=== PATIENT | male | born 1990 | race Caucasian/White ===

== ENCOUNTER 2016-11-27 03:29 | Emergency (ER) | payer OTHER ==
--- NOTE | ~2016-11-27 | CR63 ---
[facility] A Service of [facility] RADIOLOGY TEXT RESULTS PATIENT: MOE JUAREZ LOCATION: SED : [birth year] UNIT #: [id number] AGE: [address]: Ethan Pfeiffer MD SEX: M ORDER DR: [id number] [place] [address] [id number] E MR#: [id number] Acc #: [id number] NAME: MOE JUAREZ : 1990 SEX: M STUDY DATE/TIME: 11/27/2016 3:34 UNIT: SED ROOM: STUDY DESCRIPTION: CR Chest 2 View Attending Physician: Ethan Pfeiffer M.D. Ordering Physician: Ethan Pfeiffer M.D. Primary Care Physician: Primary Care Physician No MEDICAL IMAGING REPORT This report is preliminary unless electronic signature is present. EXAM Two-view chest, 11/27/2016 INDICATION Cough and fever for the past 3 days. PROCEDURE Frontal and lateral views of the chest. COMPARISON 07/09/2016 FINDINGS Heart size within normal limits. No dense consolidation. No pleural fluid or pneumothorax. IMPRESSION No active process. Dictated by... Topher Quach M.D. THIS IS AN ELECTRONICALLY VERIFIED REPORT Topher Quach M.D. at 11/27/2016 10:14 PM EED/reilly TD: 11/27/2016 05:11 JOB #: [id number] MEDICAL IMAGING REPORT [facility] A Service of [facility] RADIOLOGY TEXT RESULTS PATIENT: MOE JUAREZ LOCATION: SED : [birth year] UNIT #: [id number] AGE: [address]: Ethan Pfeiffer MD SEX: M ORDER DR: Page 1 of 1
[~2016-11-27 03:29] MED LIST: ALBUTEROL 0.5ML INH; NO MEDICATIONS; PHENERGAN DM1 ML PO; TOBRAMYCIN SULFA5 M1 OP; ZOFRAN ODT4 MG/UDTAB PO; [UNRECOGNIZED DRUG - REMARK]
[2016-11-27 03:38] LABS: INFLUENZA A POS (NEG); INFLUENZA B NEG (NEG)
== END 2016-11-27 03:54 | disposition home or self-care (01) ==
LOC: SED 03:29
PROVIDERS: Emergency Medicine
DX: J10.1 Influenza due to other identified influenza virus with other respiratory manifestations (principal); Z79.899 Other long term (current) drug therapy
CPT/HCPCS: 71020; 87651; 87804; 94640; 99284

== ENCOUNTER 2017-02-23 18:49 | Emergency (ER) | payer SELFPAY ==
--- NOTE | ~2017-02-23 | CT2 ---
[facility] A Service of [facility] RADIOLOGY TEXT RESULTS PATIENT: MOE JUAREZ LOCATION: [place] : [birth year] UNIT #: [id number] AGE: [address]: Abdoulaye Hollis MD SEX: M ORDER DR: [id number] [facility] [address]. [place], [place] [address] [id number] E MR#: [id number] Acc #: [id number] NAME: MOE JUAREZ : 1990 SEX: M STUDY DATE/TIME: 02/23/2017 21:22 UNIT: [facility] ROOM: STUDY DESCRIPTION: CT Abd and Pelv W Cont Attending Physician: Abdoulaye Hollis M.D. Ordering Physician: Abdoulaye Hollis M.D. Primary Care Physician: No Primary Care Physician MEDICAL IMAGING REPORT This report is preliminary unless electronic signature is present EXAM CT scan of the abdomen and pelvis with contrast, 02/23/2017. HISTORY Right-side abdominal pain for 2 hours today. TECHNIQUE Spiral CT was performed through the abdomen and pelvis following oral and intravenous contrast administration. This CT exam was performed with one or more of the following radiation dose reduction techniques: automatic exposure control, adjustment of mA and/or kV according to patient size, and iterative reconstruction. FINDINGS ABDOMEN. The liver, spleen, pancreas, gallbladder and biliary tree, adrenal glands and kidneys are normal. PELVIS: Findings the gut, mesenteric and anyi structures are normal. The appendix is normal. There is no free fluid in the abdomen or pelvis. The lung bases are normal. IMPRESSION Negative CT scan of the abdomen and pelvis with contrast. Normal appendix. Dictated by... Burak Patterson M.D. THIS IS AN ELECTRONICALLY VERIFIED REPORT Burak Patterson M.D. at 02/24/2017 2:16 PM KRT/tmw [facility] A Service [facility] RADIOLOGY TEXT RESULTS PATIENT: MOE JUAREZ LOCATION: [facility] : [birth year] UNIT #: [id number] AGE: [address]: Abdoulaye Hollis MD SEX: M ORDER DR: TD: 02/24/2017 04:56 JOB #: [id number] MEDICAL IMAGING REPORT Page 1 of 1 COPY
[2017-02-23 19:36] LABS: BASOPHIL# 0.1 X10e3 (0-0.3); BASOPHIL% 1.3 % (0-2.5); EOSINOPHIL# 0.1 X10e3 (0-0.7); EOSINOPHIL% 2.1 % (0.0-7.0); HEMATOCRIT 45.7 % (38.0-50.0); HEMOGLOBIN 15.1 gm/dL (13.0-16.0); LYMPHOCYTE# 1.2 X10e3 (1.0-3.5); LYMPHOCYTE% 27.5 % (17.0-45.0); MEAN CELL VOLUME 86.5 FL (83-96); MEAN CORPUSCULAR HEMOGLOBIN 28.5 PG (28-34); MEAN PLATELET VOLUME 8.9 FL (6.5-11.5); MONOCYTE# 0.4 X10e3 (0-1.0); NEUTROPHIL# 2.6 X10e3 (1.5-7.1); NEUTROPHIL% 60.1 % (40-75); PLATELET COUNT 273 X10e3 (140-420); RED BLOOD COUNT 5.28 X10e (3.90-5.60); RED CELL DISTRIBUTION WIDTH 13.1 % (11.0-15.5); WHITE BLOOD COUNT 4.3 X10e3 (4.0-10.5)
[2017-02-23 19:37] LABS: DIFF IND NO
[2017-02-23 19:53] LABS: URINE SOURCE CLEAN CATCH
[2017-02-23 19:56] LABS: ALBUMIN SERUM 4.8 g/dL (3.5-5.0); BILIRUBIN, DIRECT 0.1 mg/dL (0.0-0.2); BILIRUBIN,INDIRECT 0.5 mg/dL (0.0-0.9); BILIRUBIN,TOTAL 0.6 mg/dL (0.2-2.0); CALCIUM SERUM 9.2 mg/dL (8.4-10.2); GLOM FILT RATE Estimated 104.2 mL/min (>60); POTASSIUM 4.2 mmol/L (3.5-5.1); PROTEIN TOTAL SERUM 7.9 g/dL (6.0-8.3)
[2017-02-23 19:59] LABS: URINE APPEARANCE CLEAR; URINE BILIRUBIN NEG (NEG); URINE BLOOD NEG (NEG); URINE COLOR YELLOW; URINE GLUCOSE NEG (NEG); URINE KETONE NEG (NEG); URINE LEUKOCYTE ESTERASE NEG (NEG); URINE NITRATE NEG (NEG); URINE PROTEIN NEG (NEG); URINE SPECIFIC GRAVITY 1.021 (1.003-1.035); URINE UROBILINOGEN 0.2 MG/DL (NEG)
[2017-02-23 20:05] LABS: CULTURE INDICATED? NO
== END 2017-02-23 22:55 | disposition home or self-care (01) ==
LOC: CED 18:49
DX: R10.31 Right lower quadrant pain (principal); Z87.442 Personal history of urinary calculi; Z88.0 Allergy status to penicillin; Z88.1 Allergy status to other antibiotic agents; Z88.2 Allergy status to sulfonamides; Z88.8 Allergy status to other drugs, medicaments and biological substances
CPT/HCPCS: 36415; 74177; 80048; 80076; 81003; 82150; 83690; 85025; 96374; 96375; 99284; J1170; J2270; J2405; Q9967

== ENCOUNTER 2017-02-25 21:51 | Emergency (ER) | payer SELFPAY ==
--- NOTE | ~2017-02-25 | CT2 ---
[facility] A Service of [facility] RADIOLOGY TEXT RESULTS PATIENT: MOE JUAREZ LOCATION: SED : [birth year] UNIT #: [id number] AGE: [address]: Juan Rogers SEX: M ORDER DR: [id number] [address] [address] [id number] E MR#: [id number] Acc #: [id number] NAME: MOE JUAREZ : 1990 SEX: M STUDY DATE/TIME: 02/26/2017 0:31 UNIT: SED ROOM: STUDY DESCRIPTION: CT Abd and Pelv W Cont Attending Physician: Juan Rogers P.A.-C. Ordering Physician: Juan Rogers P.A.-C. Primary Care Physician: No Primary Care Physician MEDICAL IMAGING REPORT This report is preliminary unless electronic signature is present. EXAM CT of the abdomen and pelvis. INDICATIONS Right upper quadrant abdominal pain for 2 days. Nausea and vomiting. TECHNIQUE CT of the abdomen and pelvis with p.o. and IV contrast (100 mL Isovue-370 IV contrast). Coronal and sagittal reconstructions were obtained. This CT exam was performed with one or more of the following radiation dose reduction techniques: automatic exposure control, adjustment of mA and/or kV according to patient size, and iterative reconstruction. COMPARISON CT abdomen and pelvis dated 02/23/2017. FINDINGS ABDOMEN: The solid abdominal organs are unchanged. The bowel is not dilated. The appendix is normal. There are a few borderline enlarged lymph nodes in the right lower quadrant. This is nonspecific, however, it can be seen in the setting of a mesenteric adenitis. The abdominal aorta is normal in caliber. PELVIS: No pelvic mass. Bladder is unremarkable. No enlarged pelvic or inguinal lymph nodes. IMPRESSION 1. Mildly enlarged lymph nodes in the right lower quadrant mesentery. These are nonspecific, however, given the patient's age, these are most commonly seen in association with a mesenteric adenitis. 2. Normal appendix. [facility] A Service of [facility] RADIOLOGY TEXT RESULTS PATIENT: MOE JUAREZ LOCATION: SED : [birth year] UNIT #: [id number] AGE: [address]: Juan Rogers SEX: M ORDER DR: Dictated by... Salas Bailey M.D. THIS IS AN ELECTRONICALLY VERIFIED REPORT Salas Bailey M.D. at 02/26/2017 10:47 PM MIKO/fatou TD: 02/26/2017 18:03 JOB #: [id number] MEDICAL IMAGING REPORT Page 1 of 1
[2017-02-25 23:16] LABS: URINE SOURCE CLEAN CATCH
[2017-02-25 23:19] LABS: BASOPHIL% 0.4 % (0-2.5); DIFF IND NO; EOSINOPHIL# 0.1 X10e3 (0-0.7); EOSINOPHIL% 1.2 % (0.0-7.0); HEMOGLOBIN 15.7 gm/dL (13.0-16.0); LYMPHOCYTE# 1.5 X10e3 (1.0-3.5); LYMPHOCYTE% 19.1 % (17.0-45.0); MEAN CELL VOLUME 85.9 FL (83-96); MEAN CORPUSCULAR HEMOGLOBIN 29.2 PG (28-34); MEAN CORPUSCULAR HGB CONC 34.1 g/dL (30-36); MEAN PLATELET VOLUME 9.1 FL (6.5-11.5); MONOCYTE# 0.3 X10e3 (0-1.0); MONOCYTE% 4.2 % (3.0-12.0); NEUTROPHIL# 5.9 X10e3 (1.5-7.1); NEUTROPHIL% 75.1 % (40-75); PLATELET COUNT 279 X10e3 (140-420); RED BLOOD COUNT 5.36 X10e (3.90-5.60); RED CELL DISTRIBUTION WIDTH 13.1 % (11.0-15.5); URINE APPEARANCE CLEAR; URINE BILIRUBIN NEG (NEG); URINE BLOOD NEG (NEG); URINE COLOR YELLOW; URINE GLUCOSE NEG (NORM); URINE KETONE 1+ (NEG); URINE LEUKOCYTE ESTERASE NEG (NEG); URINE NITRATE NEG (NEG); URINE PH 7.5 (5-8); URINE PROTEIN NEG (NEG); URINE UROBILINOGEN 0.2 MG/DL (NORM); WHITE BLOOD COUNT 7.9 X10e3 (4.0-10.5)
[2017-02-25 23:20] LABS: MICRO INDICATED? NO
[2017-02-25 23:39] LABS: ALBUMIN SERUM 5.1 g/dL (3.5-5.0); BILIRUBIN, DIRECT 0.1 mg/dL (0.0-0.2); BILIRUBIN,INDIRECT 0.8 mg/dL (0.0-0.9); BILIRUBIN,TOTAL 0.9 mg/dL (0.2-2.0); BUN/CREATININE RATIO 15.55; CALCIUM SERUM 9.5 mg/dL (8.4-10.2); CREATININE SERUM 0.9 mg/dL (0.6-1.4); GLOM FILT RATE Estimated 118.3 mL/min (>60); POTASSIUM 3.6 mmol/L (3.5-5.1); PROTEIN TOTAL SERUM 8.2 g/dL (6.0-8.3)
== END 2017-02-26 01:14 | disposition home or self-care (01) ==
LOC: SED 21:51
PROVIDERS: Physician Assistant
DX: I88.0 Nonspecific mesenteric lymphadenitis (principal); Z87.442 Personal history of urinary calculi; Z79.899 Other long term (current) drug therapy; Z88.0 Allergy status to penicillin; Z88.2 Allergy status to sulfonamides; Z88.8 Allergy status to other drugs, medicaments and biological substances
CPT/HCPCS: 36415; 74177; 80048; 80076; 81003; 82150; 83690; 85025; 96374; 96375; 99284; J1885; J2405; Q9967